=== PATIENT | male | born 1955 | race Caucasian/White ===

== ENCOUNTER 2016-10-14 19:57 | Emergency (ER) | payer BC ==
[~2016-10-14] VITALS: Ht 172.7 cm; Wt 68.5 kg
[~2016-10-14 19:57] MED LIST: IBUP400T22 PO; PEN500 PO
[2016-10-14 20:08] VITALS: Ht 172.7 cm; Wt 68.5 kg
[2016-10-14] MEDS ORDERED: METF500T4 PO (21:42)
--- NOTE | 2016-10-14 21:42 | ERD ---
ER Documentation Chief Complaint Date/Time DATE: 10/14/16 TIME: 21:40 Chief Complaint Right hip pain for 4 days HPI 59-year-old male presents here in emergency department for complaint of right hip pain started 4 days ago. Patient denies any fall, trauma on affected area. Patient describes the pain is sharp pain 4/10 scale, radiates from the right hip to the right upper thigh area. Patient denies any trauma and affected area, denies any swelling, denies any redness. Patient denies any fever or chills. Patient denies any numbness or tingling. Patient did not take any medications to help with symptoms. ROS All systems reviewed and are negative except as per history of present illness. Medications Home Meds Active Scripts Penicillin V Potassium* (Penicillin V K*) 500 Mg Tab, 500 MG PO Q6 for 5 Days, TAB Prov:RMADRIANE I. PRESS BOX CUSTODIAN 01/18/15 Ibuprofen* (Ibuprofen*) 400 Mg Tablet, 400 MG PO Q6H Y for PAIN for 10 Days, TAB Prov:ADRIANE RM I. PRESS BOX CUSTODIAN 01/18/15 Reported Medications Metformin* (Glucophage*) Unknown Strength Tab, PO DAILY, #20 TAB 10/14/16 Allergies Allergies: Coded Allergies: No Known Allergy (Unverified , 10/14/16) PMhx/Soc Medical and Surgical Hx: pt denies Surgical Hx Hx Cardiac Disorders: Yes (HTN) Hx Miscellaneous Medical Probl: Yes (neuropathy, DM) Hx Alcohol Use: No Hx Substance Use: No Hx Tobacco Use: No FmHx Family History: No coronary disease, No diabetes, No other Physical Exam Vitals Vital Signs Date Time Temp Pulse Resp B/P Pulse Ox O2 Delivery O2 Flow Rate FiO2 10/14/16 20:08 97.8 72 20 177/90 99 Physical Exam GENERAL: The patient is well developed and appropriate for usual state of health, in no apparent distress. CHEST: Clear to auscultation bilaterally. There are no rales, wheezes or rhonchi. HEART: Regular rate and rhythm. No murmurs, clicks, rubs or gallops. No S3 or S4. ABDOMEN: Soft, nontender and nondistended. Good bowel sounds. No rebound or guarding. No gross peritonitis. No gross organomegaly or masses. No Andrew sign or McBurney point tenderness. BACK: No midline or flank tenderness. EXTREMITIES: Right hip noted for range of motion without any difficulty, able to ambulate on it, no swelling noted, nontender on palpation. Equal pulses bilaterally. There is no peripheral clubbing, cyanosis or edema. No focal swelling or erythema. Full range of motion. Grossly neurovascularly intact. NEURO: Alert and oriented. Cranial nerves 2-12 intact. Motor strength in all 4 extremities with 5/5 strength. Sensation grossly intact. Normal speech and gait. SKIN: There is no apparent rash or petechia. The skin is warm and dry. HEMATOLOGIC AND LYMPHATIC: There is no evidence of excessive bruising or lymphedema. No gross cervical, axillary, or inguinal lymphadenopathy. Results 24 hrs PROCEDURE: XR Hip. CLINICAL INDICATION: Generalized right hip pain TECHNIQUE: AP and frog lateral views of the right hip were performed. COMPARISON: None. FINDINGS: There is normal mineralization and alignment. No fracture or osseous lesion is identified. The femoral head is normal in contour and the joint space preserved. The soft tissues are unremarkable. . RPTAT:HJJR IMPRESSION: Unremarkable right hip series. Physician Pineda Date Time Electronically viewed and signed by Physician Pineda on 10/14/2016 22:34 JR/ CC: FOREST EDUARDO PRESS BOX CUSTODIAN Procedures/MDM Medical Decision Making: Patient's pain is most likely consistent with a right hip strain. There is no suspicion for neurovascular compromise. Patient has intact sensation and circulation of the affected extremity. There is low suspicion for septic arthritis. Patient does not have any fever. Radiology exams of the affected area does not show any fracture or dislocation. Disposition: Home. Patient is given prescription for ibuprofen for pain, tramadol for severe pain. Patient was advised to avoid walking for a longer period of time, rest. Patient was advised that if symptoms are worse, numbness, tingling, high fever, unable to move joint, worsening symptoms, to return to emergency department immediately. Otherwise, patient is advised to follow up with the primary care doctor in 5-7 days for reevaluation of symptoms. Departure Diagnosis: Primary Impression: Hip pain Laterality: right Qualified Code: M25.551 - Pain of right hip joint Condition: Stable Patient Instructions: Hip Strain Additional Instructions: Patient is given prescription for ibuprofen for pain, tramadol for severe pain. Patient was advised to avoid walking for a longer period of time, rest. Patient was advised that if symptoms are worse, numbness, tingling, high fever, unable to move joint, worsening symptoms, to return to emergency department immediately. Otherwise, patient is advised to follow up with the primary care doctor in 5-7 days for reevaluation of symptoms. FOREST EDUARDO NP Oct 14, 2016 21:42
--- NOTE | 2016-10-14 22:34 | RADRPT ---
PROCEDURE: XR Hip. CLINICAL INDICATION: Generalized right hip pain TECHNIQUE: AP and frog lateral views of the right hip were performed. COMPARISON: None. FINDINGS: There is normal mineralization and alignment. No fracture or osseous lesion is identified. The femor al head is normal in contour and the joint space preserved. The soft tissues are unremarkable. . RPTAT:HJJR IMPRESSION: Unremarkable right hip series. Physician Pineda Date Time Electronically viewed and signed by Farhan Rosas Physician on 10/14/2016 22:34 /
[2016-10-14] MEDS ORDERED: TRAM50TA2 PO (22:38)
[2016-10-14] MEDS ORDERED: IBUP400T22 PO (22:38)
== END 2016-10-14 23:00 | disposition home or self-care (01) ==
LOC: FTE 19:57
DX: M25.551 Pain in right hip (principal); I10 Essential (primary) hypertension; E11.9 Type 2 diabetes mellitus without complications; Z79.84 Long term (current) use of oral hypoglycemic drugs
CPT/HCPCS: 73510

== ENCOUNTER 2016-10-17 08:53 | Emergency (ER) | payer BC ==
[~2016-10-17] VITALS: Ht 172.7 cm; Wt 67.5 kg
[~2016-10-17 08:53] MED LIST changes: +METF500T4 PO; +TRAM50TA2 PO
[2016-10-17 08:55] VITALS: Ht 172.7 cm; Wt 67.5 kg
[2016-10-17 09:41] VITALS: BP 113/85; PULSE 78; RESP 18; TEMP 98.2
[2016-10-17] MEDS ORDERED: FAMOTIDINE 20 MG INJ IV STA (09:42)
[2016-10-17] MEDS ORDERED: METOCLOPRAMIDE 10 MG INJ IV STA (09:42)
[2016-10-17] MEDS ORDERED: SOD CHLORIDE 0.9% 1,000 ML IV STA (09:42)
--- NOTE | 2016-10-17 10:09 | RADRPT ---
PROCEDURE: XR Chest. CLINICAL INDICATION: Abdominal Pain. Chest pain. TECHNIQUE: Single frontal chest x-ray. COMPARISON: None. FINDINGS: The lungs are clear of acute infiltrates, edema, effusions, or masses. Low lung volumes are present. . The cardiomediastinal silhouette is unremarkable. The osseous structures are intact. IMPRESSION: No acute cardiopulmonary disease. RPTAT: QQ .Rivera Rizzo MD, MD Date Time Electronically viewed and signed by .Rivera Rizzo MD, on 10/17/2016 10:09 .L/
--- NOTE | 2016-10-17 10:10 | RADRPT ---
PROCEDURE: XR Abdomen. CLINICAL INDICATION: Abdominal pain TECHNIQUE: AP abdomen x-ray. COMPARISON: None. FINDINGS: The bowel gas pattern is normal. There is no evidence of obstruction. There are no abnormal calcific ations overlying the urinary tracts. The osseous structures are unremarkable. Degenerative disk nohemy nges at the L4-5 level are noted. IMPRESSION: Unremarkable abdomen radiograph. RPTAT: QQ .Rivera Rizzo MD, MD Date Time Electronically viewed and signed by .Rivera Rizzo MD, on 10/17/2016 10:10 .L/
[2016-10-17 10:21] LABS: ADD SCAN DIFF NO
[2016-10-17 10:23] LABS: BASOPHIL # 0.1 10^3/ul (0.0-0.1); BASOPHILS % 0.8 % (0.0-2.0); EOSINOPHILS # 0.3 10^3/ul (0.0-0.5); EOSINOPHILS % 2.9 % (0.0-7.0); HEMATOCRIT 40.8 % (42.0-52.0); HEMOGLOBIN 13.7 g/dl (14.0-18.0); LYMPHOCYTES # 3.7 10^3/ul (0.8-2.9); LYMPHOCYTES % 36.8 % (15.0-51.0); MEAN CORPUSCULAR HGB CONC 33.6 g/dl (32.0-37.0); MEAN CORPUSCULAR VOLUME 89.3 fl (82.0-101.0); MEAN PLATELET VOLUME 9.5 fl (7.4-10.4); MONOCYTE # 0.9 10^3/ul (0.3-0.9); MONOCYTES % 8.7 % (0.0-11.0); NEUTROPHILS % 50.3 % (39.0-77.0); PLATELET COUNT 269 10^3/UL (140-415); RED BLOOD COUNT 4.57 10^6/ul (4.70-6.10); RED CELL DISTRIBUTION WIDTH 12.2 % (11.5-14.5)
[2016-10-17 10:36] LABS: ADD UMIC NO; URINE BILIRUBIN (Dip) NEGATIVE (NEGATIVE); URINE BLOOD (Dip) NEGATIVE (NEGATIVE); URINE COLOR LT. YELLOW (YELLOW); URINE GLUCOSE (Dip) >=1000 % (NEGATIVE); URINE KETONES (Dip) NEGATIVE (NEGATIVE); URINE LEUKOCYTE ESTERASE (Dip) NEGATIVE (NEGATIVE); URINE NITRITE (Dip) NEGATIVE (NEGATIVE); URINE TOTAL PROTEIN (Dip) NEGATIVE (NEGATIVE); URINE UROBILINOGEN (Dip) 0.2 E.U./dL (0.1-1.0)
[2016-10-17 10:51] LABS: ALANINE AMINOTRANSFERASE 42 IU/L (13-69); ALBUMIN 4.8 g/dl (3.3-4.9); ALKALINE PHOSPHATASE 69 IU/L (42-121); ANION GAP 12 (8-16); ASPARTATE AMINO TRANSFERASE 34 IU/L (15-46); BILIRUBIN,INDIRECT 0.5 mg/dl (0-1.1); BILIRUBIN,TOTAL 0.5 mg/dl (0.2-1.3); BLOOD UREA NITROGEN 18 mg/dl (7-20); CALCIUM 9.8 mg/dl (8.4-10.2); CARBON DIOXIDE 29 mmol/L (21-31); CHLORIDE 102 mmol/L (97-110); CREATININE 1.18 mg/dl (0.61-1.24); GLUCOSE 256 mg/dl (70-220); POTASSIUM 3.8 mmol/L (3.5-5.1); SODIUM 139 mmol/L (135-144); TOTAL PROTEIN 7.8 g/dl (6.1-8.1)
[2016-10-17 11:06] LABS: TROPONIN-I < 0.012 ng/ml (0.00-0.12)
[2016-10-17] MEDS ORDERED: ACET500C5 PO (11:13)
[2016-10-17] MEDS ORDERED: FAMO-18 PO (11:13)
[2016-10-17] MEDS ORDERED: METO10TA92 PO (11:13)
--- NOTE | 2016-10-17 11:26 | ERD ---
ER Documentation Chief Complaint Date/Time DATE: 10/17/16 TIME: 11:20 Chief Complaint abd pain with vomiting , also c/o rt leg pain HPI 61-year-old male with a history of diabetes presenting with complaints of right hip pain for 4 days and vomiting after eating for about 4 days as well. Vomit is nonbloody and nonbilious. It only after eating. He has diffuse abdominal pain and constipation for the past 4-5 days as well. The pain is cramping, intermittent. He denies any fever, chills, chest pain, shortness of breath, or dysuria. He was here on October 14 for the right hip pain and had an x-ray done which was normal. He has been taking ibuprofen for the pain ROS All systems reviewed and are negative except as per history of present illness. Medications Home Meds Active Scripts Metoclopramide* (Reglan*) 10 Mg Tablet, 10 MG PO Q6 Y for NAUSEA AND/OR VOMITING , #10 TAB Prov:JANY BECK MD 10/17/16 Famotidine* (Pepcid*) 20 Mg Tablet, 20 MG PO BID for 30 Days, TAB Prov:JANY BECK MD 10/17/16 Acetaminophen* (Tylophen*) 500 Mg Capsule, 2 CAP PO Q8H Y for PAIN AND OR ELEVATED TEMP, #20 CAP Prov:JANY BECK MD 10/17/16 Tramadol HCl (Tramadol HCl) 50 Mg Tablet, 50 MG PO Q6 Y for SEVERE PAIN LEVEL 7- 10, #20 TAB Prov:FOREST EDUARDO NP 10/14/16 Ibuprofen* (Motrin*) 400 Mg Tab, 400 MG PO Q6H Y for PAIN AND OR ELEVATED TEMP, #30 TAB Prov:FOREST EDUARDO NP 10/14/16 Penicillin V Potassium* (Penicillin V K*) 500 Mg Tab, 500 MG PO Q6 for 5 Days, TAB Prov:ADRIANE RM NP 01/18/15 Ibuprofen* (Ibuprofen*) 400 Mg Tablet, 400 MG PO Q6H Y for PAIN for 10 Days, TAB Prov:ADRIANE RM NP 01/18/15 Reported Medications Metformin* (Glucophage*) Unknown Strength Tab, PO DAILY, #20 TAB 10/14/16 Allergies Allergies: Coded Allergies: No Known Allergy (Unverified , 10/14/16) PMhx/Soc History of Surgery: No Anesthesia Reaction: No Hx Neurological Disorder: No Hx Respiratory Disorders: No Hx Cardiac Disorders: Yes (HTN) Hx Psychiatric Problems: No Hx Miscellaneous Medical Probl: Yes (neuropathy, DM) Hx Alcohol Use: No Hx Substance Use: No Hx Tobacco Use: No Smoking Status: Current every day smoker FmHx Family History: No coronary disease Physical Exam Vitals Vital Signs Date Time Temp Pulse Resp B/P Pulse Ox O2 Delivery O2 Flow Rate FiO2 10/17/16 09:41 98.2 78 18 113/85 Room Air 10/17/16 08:55 98.5 78 18 152/73 98 Physical Exam Const: Well-appearing, nontoxic, no distress, belching Head: Atraumatic Eyes: Normal Conjunctiva ENT: Normal External Ears, Nose and Mouth. Neck: Full range of motion..~ No meningismus. Resp: Clear to auscultation bilaterally Cardio: Regular rate and rhythm, no murmurs. 2+ distal pulses Abd: Soft, non tender, non distended. Normal bowel sounds Skin: No petechiae or rashes Back: No midline or flank tenderness Ext: No cyanosis, or edema Neur: Awake and alert Psych: Normal Mood and Affect Result Diagram: 10/17/16 1000 10/17/16 1000 Results 24 hrs Laboratory Tests Test 10/17/16 10:00 White Blood Count 10.010^3/ul Red Blood Count 4.5710^6/ul Hemoglobin 13.7g/dl Hematocrit 40.8% Mean Corpuscular Volume 89.3fl Mean Corpuscular Hemoglobin 30.0pg Mean Corpuscular Hemoglobin Concent 33.6g/dl Red Cell Distribution Width 12.2% Platelet Count 64878^3/UL Mean Platelet Volume 9.5fl Neutrophils % 50.3% Lymphocytes % 36.8% Monocytes % 8.7% Eosinophils % 2.9% Basophils % 0.8% Nucleated Red Blood Cells % 0.0/100WBC Neutrophils # 5.010^3/ul Lymphocytes # 3.710^3/ul Monocytes # 0.910^3/ul Eosinophils # 0.310^3/ul Basophils # 0.110^3/ul Nucleated Red Blood Cells # 0.010^3/ul Urine Color LT. YELLOW Urine Clarity CLEAR Urine pH 5.5 Urine Specific [place] 1.020 Urine Ketones NEGATIVE Urine Nitrite NEGATIVE Urine Bilirubin NEGATIVE Urine Urobilinogen 0.2 E.U./dL Urine Leukocyte Esterase NEGATIVE Urine Hemoglobin NEGATIVE Urine Glucose >=1000% Urine Total Protein NEGATIVE Sodium Level 139mmol/L Potassium Level 3.8mmol/L Chloride Level 102mmol/L Carbon Dioxide Level 29mmol/L Anion Gap 12 Blood Urea Nitrogen 18mg/dl Creatinine 1.18mg/dl Glucose Level 256mg/dl Calcium Level 9.8mg/dl Total Bilirubin 0.5mg/dl Direct Bilirubin 0.00mg/dl Indirect Bilirubin 0.5mg/dl Aspartate Amino Transf (AST/SGOT) 34IU/L Alanine Aminotransferase (ALT/SGPT) 42IU/L Alkaline Phosphatase 69IU/L Troponin I < 0.012ng/ml Total Protein 7.8g/dl Albumin 4.8g/dl Globulin 3.00g/dl Albumin/Globulin Ratio 1.60 Lipase 94U/L Current Medications Medications (Trade) Dose Ordered Sig/Shanna Route PRN Reason Start Time Stop Time Status Last Admin Dose Admin Sodium Chloride (NS) 1,000 ml @ 1,000 mls/hr Q1H STAT IV 10/17/16 09:42 10/17/16 10:41 DC 10/17/16 09:58 Metoclopramide HCl (Reglan) 10 mg ONCE STAT IV 10/17/16 09:42 10/17/16 09:44 DC 10/17/16 09:59 Famotidine (Pepcid Iv) 20 mg ONCE STAT IV 10/17/16 09:42 10/17/16 09:44 DC 10/17/16 09:58 Procedures/[facility] EKG: Rate/Rhythm: Normal Sinus Rhythm QRS, ST, T-waves: Changes of possible RV hypertrophy, no changes consistent w / acute ischemia Impression: No evidence of ischemia or arrhythmia Chest x-ray normal KUB normal Labs: CBC, CMP, troponin, urinalysis with no significant abnormalities other than hyperglycemia MDM Patient is presenting with diffuse abdominal pain. He is afebrile with stable vitals. His exam is not concerning for acute surgical abdomen. Reglan and Pepcid were given for his nausea and possible gastritis. He had significant improvement with these medications. I doubt his vomiting is secondary to cardiac pathology. I suspect he has gastritis, worsened with the ibuprofen he is taking. I recommended changing his pain medications to Tylenol. I told him I reviewed the x-ray from 3 days ago of his right hip and that was normal. There is no evidence of septic joint on my exam. There is no evidence of ischemic limb or DVT. Patient stabilized and tolerating p.o. He is stable for outpatient treatment and follow-up with his PMD. I prescribed some Reglan and Pepcid in addition to Tylenol for pain. Patient was advised to return for any worsening symptoms. Departure Diagnosis: Primary Impression: Abdominal pain Abdominal location: generalized Qualified Code: R10.84 - Generalized abdominal pain Additional Impressions: Right hip pain Constipation Constipation type: unspecified constipation type Qualified Code: K59.00 - Constipation, unspecified constipation type Vomiting Vomiting type: unspecified Vomiting Intractability: non-intractable Nausea presence: with nausea Qualified Code: R11.2 - Non-intractable vomiting with nausea, unspecified vomiting type Hyperglycemia Condition: Stable Patient Instructions: Treating Constipation, Gastritis (Adult), Hip Strain JANY BECK MD Oct 17, 2016 11:26
== END 2016-10-17 11:23 | disposition home or self-care (01) ==
LOC: E/R 08:53
DX: R10.84 Generalized abdominal pain (principal); M25.551 Pain in right hip; K59.00 Constipation, unspecified; R11.2 Nausea with vomiting, unspecified; E11.65 Type 2 diabetes mellitus with hyperglycemia; I10 Essential (primary) hypertension; F17.210 Nicotine dependence, cigarettes, uncomplicated; Z79.84 Long term (current) use of oral hypoglycemic drugs
CPT/HCPCS: 36415; 71010; 74000; 80053; 81003; 83690; 84484; 85025; 96374; 96375; 99285; J2765; J7030; Z7610; 93005

== ENCOUNTER 2017-07-31 15:46 | Emergency (ER) | END 2017-07-31 19:27 | disposition home or self-care (01) ==

== ENCOUNTER 2018-07-15 20:42 | Emergency (ER) | payer BC ==
[~2018-07-15] VITALS: Ht 167.6 cm; Wt 64.5 kg
[~2018-07-15 20:42] MED LIST changes: +ACET500C5 PO; +FAMO-96 PO; +IBUP-1541 PO; +IBUP-1561 PO; -IBUP400T22 PO; +METF-849 PO; -METF500T4 PO; +METO10TA92 PO; +ONDA4TAB13 PO; -PEN500 PO; +PENI500T PO
[2018-07-15 20:56] VITALS: Ht 167.6 cm; Wt 64.5 kg
--- NOTE | 2018-07-15 23:44 | ERD ---
ER Documentation Chief Complaint Chief Complaint ap x2 months HPI The patient is a 62-year-old male, presenting to the ER because of chronic abdominal pain. He has vacationed in [facility] since April 2018, just came back today to the [facility] about 5 PM. He stated that he might have worsening abdominal pain because of what he ate in [facility]. He had history of chronic abdominal pain. He denies fever, chills, neck pain, chest pain, dyspnea, vomiting, dysuria, diarrhea. He smokes, denies drinking Past medical history: Chronic abdominal pain, diabetes mellitus, hepatic steatosis, gastritis, hypertension Past surgical history: None ROS All systems reviewed and are negative except as per history of present illness. Medications Home Meds Active Scripts Pantoprazole* (Protonix*) 20 Mg Tablet.dr, 20 MG PO DAILY, #10 TAB Prov:ROMMEL GREGG MD 07/16/18 Ondansetron Hcl* (Zofran*) 4 Mg Tab, 4 MG PO Q4H PRN for NAUSEA AND OR VOMITING, #10 TAB Prov:LARRY LAWLER NP 07/31/17 Metoclopramide* (Reglan*) 10 Mg Tablet, 10 MG PO Q6 PRN for NAUSEA AND/OR VOMITING, #10 TAB Prov:JANY BECK MD 10/17/16 Famotidine* (Pepcid*) 20 Mg Tablet, 20 MG PO BID for 30 Days, TAB Prov:JANY BECK MD 10/17/16 Acetaminophen* (Tylophen*) 500 Mg Capsule, 2 CAP PO Q8H PRN for PAIN AND OR ELEVATED TEMP, #20 CAP Prov:JANY BECK MD 10/17/16 Tramadol HCl (Tramadol HCl) 50 Mg Tablet, 50 MG PO Q6 PRN for SEVERE PAIN LEVEL 7-10, #20 TAB Prov:FOREST EDUARDO NP 10/14/16 Ibuprofen* (Motrin*) 400 Mg Tab, 400 MG PO Q6H PRN for PAIN AND OR ELEVATED TEMP, #30 TAB Prov:FOREST EDUARDO NP 10/14/16 Penicillin V Potassium* (Penicillin V K*) 500 Mg Tab, 500 MG PO Q6 for 5 Days, TAB Prov:ADRIANE RM I. WEAVING MACHINE OPERATOR 01/18/15 Ibuprofen* (Ibuprofen*) 400 Mg Tablet, 400 MG PO Q6H PRN for PAIN for 10 Days, TAB Prov:ADRIANE RM I. WEAVING MACHINE OPERATOR 01/18/15 Reported Medications Metformin* (Glucophage*) Unknown Strength Tab, PO DAILY, #20 TAB 10/14/16 Allergies Allergies: Coded Allergies: No Known Allergy (Unverified , 07/31/17) PMhx/Soc History of Surgery: No Anesthesia Reaction: No Hx Neurological Disorder: No Hx Respiratory Disorders: No Hx Cardiac Disorders: Yes (HTN) Hx Psychiatric Problems: No Hx Miscellaneous Medical Probl: Yes (neuropathy, DM) Hx Alcohol Use: No Hx Substance Use: No Hx Tobacco Use: No Physical Exam Vitals Vital Signs Date Temp Pulse Resp B/P (MAP) Pulse Ox O2 O2 Flow FiO2 Time Delivery Rate 07/16/18 80 16 182/90 100 Room Air 01:29 (120) 07/15/18 78 16 164/90 100 Room Air 23:30 (114) 07/15/18 98 20 177/101 99 20:56 (126) Physical Exam Const: No acute distress. Head: Atraumatic. Eyes: Normal Conjunctiva. ENT: Normal External Ears, Nose and Mouth. Neck: Full range of motion. No meningismus. Resp: Clear to auscultation bilaterally. Cardio: Regular rate and rhythm. Abd: Soft, non distended, normal bowel sounds, minimal epigastric and right upper quadrant discomfort, no right lower quadrant, rigidity, rebound, CVA tenderness Skin: No petechiae or rashes. Back: No midline or flank tenderness. Ext: No cyanosis, or edema. Neur: Awake and alert. No focal deficit Psych: Normal Mood and Affect. Result Diagram: 07/15/18 2345 07/15/18 2345 Results 24 hrs Laboratory Tests Test 07/15/18 23:45 07/16/18 00:33 White Blood Count 8.7 10^3/ul Red Blood Count 5.60 10^6/ul Hemoglobin 16.7 g/dl Hematocrit 49.5 % Mean Corpuscular Volume 88.4 fl Mean Corpuscular Hemoglobin 29.8 pg Mean Corpuscular Hemoglobin Concent 33.7 g/dl Red Cell Distribution Width 11.5 % Platelet Count 214 10^3/UL Mean Platelet Volume 9.4 fl Immature Granulocytes % 0.600 % Neutrophils % 37.6 % Lymphocytes % 46.5 % Monocytes % 10.3 % Eosinophils % 3.7 % Basophils % 1.3 % Nucleated Red Blood Cells % 0.0 /100WBC Immature Granulocytes # 0.050 10^3/ul Neutrophils # 3.3 10^3/ul Lymphocytes # 4.0 10^3/ul Monocytes # 0.9 10^3/ul Eosinophils # 0.3 10^3/ul Basophils # 0.1 10^3/ul Nucleated Red Blood Cells # 0.0 10^3/ul Sodium Level 138 mmol/L Potassium Level 4.3 mmol/L Chloride Level 95 mmol/L Carbon Dioxide Level 29 mmol/L Anion Gap 14 Blood Urea Nitrogen 19 mg/dl Creatinine 1.33 mg/dl Est Glomerular Filtrat Rate mL/min 54 mL/min Glucose Level 238 mg/dl Calcium Level 10.2 mg/dl Total Bilirubin 0.7 mg/dl Direct Bilirubin 0.00 mg/dl Indirect Bilirubin 0.7 mg/dl Aspartate Amino Transf (AST/SGOT) 83 IU/L Alanine Aminotransferase (ALT/SGPT) 96 IU/L Alkaline Phosphatase 155 IU/L Total Protein 9.3 g/dl Albumin 4.9 g/dl Globulin 4.40 g/dl Albumin/Globulin Ratio 1.11 Lipase 106 U/L Bedside Urine pH (LAB) 5.0 Bedside Urine Protein (LAB) Negative Bedside Urine Glucose (UA) 0.50% Bedside Urine Ketones (LAB) Negative Bedside Urine Blood Trace-lysed Bedside Urine Nitrite (LAB) Negative Bedside Urine Leukocyte Esterase (L Negative Current Medications Medications Dose Sig/Shanna Start Time Status Last (Trade) Ordered Route PRN Stop Time Admin Dose Reason Admin Ketorolac 30 mg ONCE STAT 07/16/18 DC 07/16/18 Tromethamine IV 00:22 07/16/18 00:35 (Toradol) 00:24 40 mg ONCE ONCE 07/16/18 DC 07/16/18 Pantoprazole IV 00:30 07/16/18 00:35 (Protonix 00:31 Iv) Procedures/MDM MEDICAL MAKING DECISION: The patient is a 62-year-old male, presenting with acute on chronic abdominal pain, was treated with Protonix 40 mg IV and Toradol 30 mg IV for pain with good response, is stable for outpatient follow-up. I did review his chart, gallbladder ultrasound and abdominal pelvic CT scan on July 31, 2017 that show hepatic steatosis. He does not require any more imaging study The differential diagnoses considered include but are not limited to cholelithiasis, cholecystitis, choledocholithiasis, cholangitis, pancreatitis, hepatitis, gastritis, peptic ulcer disease, gastric ulcer, appendicitis, cystitis, diverticulitis, partial small bowel obstruction. Departure Diagnosis: Primary Impression: Abdominal pain Additional Impression: Abnormal LFTs Condition: Good Comments He was discharged with Protonix I discussed the findings with the patient. I advised the patient to follow-up with the primary physician in about 2-3 days for reevaluation and referral to gastroenterology for upper endoscopy, sooner if needed and return if any concern. Disclaimer: Inadvertent spelling and grammatical errors are likely due to EHR/dictation software use and do not reflect on the overall quality of patient care. Also, please note that the electronic time recorded on this note does not necessarily reflect the actual time of the patient encounter. ROMMEL GREGG MD Jul 15, 2018 23:44
[2018-07-16] MEDS ORDERED: KETOROLAC 30 MG INJ IV STA (00:22)
[2018-07-16] MEDS ORDERED: PANTOPRAZOLE 40 MG INJ IV ONE (00:30)
[2018-07-16 01:29] VITALS: BP 182/90; PULSE 80; RESP 16
[2018-07-16] MEDS ORDERED: PANT20TA2 PO (02:07)
== END 2018-07-16 02:10 | disposition home or self-care (01) ==
LOC: E/R 20:42
DX: R10.13 Epigastric pain (principal); I10 Essential (primary) hypertension; E11.9 Type 2 diabetes mellitus without complications; R94.5 Abnormal results of liver function studies; Z79.84 Long term (current) use of oral hypoglycemic drugs
CPT/HCPCS: 36415; 80053; 81003; 83690; 85025; 96374; 96375; C9113; J1885; Z7502